=== PATIENT | female | born 1945 | race Caucasian/White ===

== ENCOUNTER 2017-12-02 20:10 | Emergency (ER) | payer OTHER, MEDICAID ==
[2017-12-02] MEDS: traMADol 50 MG TAB PO (21:06)
== END 2017-12-03 01:28 | disposition home or self-care (01) ==
LOC: E/R 12-03 01:28
DX: S80.01XA Contusion of right knee, initial encounter (principal); S70.01XA Contusion of right hip, initial encounter; S40.011A Contusion of right shoulder, initial encounter; R07.9 Chest pain, unspecified; W18.39XA Other fall on same level, initial encounter; Y92.9 Unspecified place or not applicable
CPT/HCPCS: 73030; 73030-RT; 73510; 73562; 93005; 99284-25

== ENCOUNTER 2019-04-06 07:37 | Emergency (ER) | payer OTHER, MEDICAID ==
[2019-04-06] MEDS: ALBUTEROL 0.083% (NEB) 2.5 MG/3 ML AMP NEB (07:57)
[2019-04-06] MEDS: IPRATROPIUM (NEB) 0.5 MG/2.5 ML AMP NEB (07:57)
[2019-04-06] MEDS: GUAIFENESIN/DM 5ML CUP PO (08:09)
== END 2019-04-06 09:53 | disposition home or self-care (01) ==
LOC: E/R 09:53
DX: J20.9 Acute bronchitis, unspecified (principal); I10 Essential (primary) hypertension; Z87.891 Personal history of nicotine dependence
CPT/HCPCS: 71045; 93005; 94664; 99284-25